=== PATIENT | male | born 1945 | race Caucasian/White ===

== ENCOUNTER 2022-03-28 14:24 | Inpatient (IN) | payer OTHER, SELFPAY ==
[2022-03-28] VITALS (9 sets, daily range): BP systolic 142–187; BP diastolic 74–96; PULSE 92–101; RESP 17–28; TEMP 36.6–36.8; O2SAT 93–96; BMI 33.3
--- NOTE | 2022-03-28 14:40 | XR_ITS ---
WS: [id number] XR chest 1V portable [id number] REASON FOR EXAM: dyspnea FINDINGS: No previous examination for comparison. Cardiac device overlying the left chest with multiple leads to the left subclavian vein to the right atrium and right ventricular apex. There is a small caliber lead which overlies a more superior aspec t of the cardiac silhouette. A lateral view would be required to determine location. The heart is enlarged. Calcified granulomatous disease bilaterally. Significant elevation of the left hemidiaphragm. No acute pulmonary parenchymal or pleural abnormality is identified. XR/XR chest 1V portable [id number] IMPRESSION: No acute chest abnormality identified.
--- NOTE | 2022-03-28 14:40 | ECG_ITS ---
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 Measurements Intervals [place] Rate: 150 P: IN: QRS: 73 QRSD: 155 T: 103 QT: 322 QTc: 509 Interpretive Statements ELECTRONIC VENTRICULAR PACEMAKER INTRAVENTRICULAR CONDUCTION DELAY [130+ ms QRS DURATION] No previous ECG available for comparison Electronically Signed On 03-28-2022 17:34:44 CDT by Binu Bolanos M.D. [email or web address] [email or web address]/[id number]
--- NOTE | 2022-03-28 14:41 | ED_ITS ---
[facility] - General Adult General: Chief complaint: Shortness of Breath/Dyspnea Stated complaint: SOB/ EDEMA/ WHEEZING Time Seen by Provider: 03/28/22 14:40 History of Present Illness: Patient is a 76-year-old male with history gout, hypertension, COPD, CHF presenting to the emergency room with concerns for respiratory distress for the last 2 days. Patient tells me that he was recently admitted to [facility] for concerns of CHF exacerbation. Since discharge from the hospital 5 days ago, patient reports significant shortness of breath. Patient is now requiring 3 L of oxygen per his . Patient tells me that he has a hard time taking his Lasix because of gout flare. Whenever he takes more Lasix, he usually experience severe gout attacks. Patient tells me he takes 20 mg of lasix. Patient reports history of COPD. Patient denies any cough, runny nose, sore throat, abdominal pain, diarrhea/melena/hematochezia. No complaints. Onset:2 days ago Duration:2 days Location:home Severity:moderate Associated symptoms: Reports dyspnea; Deny chest pain, nausea, rash, palpitations or vomiting Review of Systems Const: Denies: fever(s) or chills Eyes: Denies: change in vision ENMT: Denies: mouth pain Card: Denies: chest pain or palpitations Resp: Reports: dyspnea; Denies: non-productive cough GI: Denies: abdominal pain, nausea, vomiting or diarrhea : Denies: dysuria Musc: Denies: extremity pain Skin/Breast: Denies: rash or new lesions Neuro: Denies: weakness in extremities Psych: Reports: other (Normal mood) Yogesh/Lymph: Denies: easy bruising [facility] ED PFSH: Medical History CHF (congestive heart failure) COPD (chronic obstructive pulmonary disease) Diabetes Gout Hypertension Social History Smoking and tobacco status: never smoked Alcohol intake: never Substance/Drug Use: never Physical Exam Const: COMMON NORMALS: alert HENMT: COMMON NORMALS: atraumatic HEAD & SCALP: atraumatic MOUTH: moist mucous membranes not abnormal Eye: COMMON NORMALS: EOMs intact bilaterally and conjunctivae normal CONJUNCTIVA: Yes conjunctivae normal Neck/C-Spine: COMMON NORMALS: full ROM and supple Resp: OTHER: + Bilateral expiratory wheezes, coarse breath sounds, mild increased work of breathing b/l Cardio: COMMON NORMALS: regular rate RATE: regular rate GI: COMMON NORMALS: Soft to palpation and non-tender PALPATION: Yes Soft to palpation OTHER: No focal TTP. NO guarding rebound, guarding, rigidity. No CVA tenderness to percussion. Neg Good/Neg McBurney's point tenderness, no suprabupic tenderness to palpation. Extremity: COMMON NORMALS: full ROM OTHER: 2+ edema b/l pedal Neuro: SENSORIUM/ORIENTATION: Yes alert MOTOR EXAM: No Abnormal motor strength present and Other motor observations present (no focal motor deficits) Psych: COMMON NORMALS: speech normal SPEECH: Yes normal speech MOOD & AFFECT: Yes euthymic mood Course Vital Signs: Vital signs: Vital Signs Temperature 98.0 F 03/28/22 14:39 Pulse Rate 99 03/28/22 16:26 Respiratory Rate 17 03/28/22 16:26 Blood Pressure 187/96 03/28/22 16:26 Pulse Oximetry 94 03/28/22 16:26 Oxygen Delivery Me thod 03/28/22 16:26 Oxygen Flow Rate 2 03/28/22 16:26 [facility] - General Adult Medical Decision Making Patient is a 76-year-old male with history gout, hypertension, COPD, CHF presenting to the emergency room with concerns for respiratory distress for the last 2 days. On physical exam, patient was noted to be on 3 L oxygen satting at 94 to 95%. Patient do have coarse breath sounds with occasional wheezes. Patient is noted to have mild increased work of breathing, 1+ lower extremity edema b/l. Patient received DuoNeb, Solu-Medrol and 1 mg of bumetanide. Patient CT is negative for any signs of PE. Ongoing dyspnea, patient admitted hospital for further observation. Disposition: ICU Lab Data : 03/28/22 15:10 03/28/22 15:10 Radiology Impressions Chest X-Ray 03/28/22 14:40 IMPRESSION: No acute chest abnormality identified. Chest CTA 03/28/22 17:12 IMPRESSION: 1. Negative for pulmonary embolus. 2. Scattered right lung tree-in-bud reticulonodular densities with similar findings in the left lower lobe may reflect an atypical mycobacterial infection. 3. Several focal nodular right-sided areas of irregular airspace opacification, measuring up to 9.6 mm in the right lower lobe, series 8, image 36 and 5.7 mm in the right middle lobe, series 8, image 34, consider short-term 1 month follow-up exam to assess for resolution and exclude an infectious process. 4. Prominent mediastinal lymph nodes measuring up to nearly 15 mm, nonspecific. 5. Coronary artery atherosclerotic calcifications. Laboratory Results WBC 12.9 10^3/uL (4.0-10.0) H 03/28/22 15:10 RBC 4.37 10^6/uL (4.1-5.3) 03/28/22 15:10 Hgb 14.6 g/dL (11.7-16.6) 03/28/22 15:10 Hct 43.7 % (42.0-52.0) 03/28/22 15:10 MCV 100.0 fl (80-94) H 03/28/22 15:10 MCH 33.4 pg (28.0-34.0) 03/28/22 15:10 MCHC 33.4 g/dL (30.0-36.0) 03/28/22 15:10 RDW 16.7 % (12.1-15.1) H 03/28/22 15:10 Plt Count 264 10^3/cmm (130-400) 03/28/22 15:10 MPV 10.1 fL (7.4-10.4) 03/28/22 15:10 Neut % (Auto) 77.5 % 03/28/22 15:10 Lymph % (Auto) 7.5 % 03/28/22 15:10 [place] % (Auto) 6.4 % 03/28/22 15:10 Eos % (Auto) 7.0 % 03/28/22 15:10 Baso % (Auto) 0.9 % 03/28/22 15:10 Neut # (Auto) 9.99 10^3/uL (1.8-7.7) H 03/28/22 15:10 Lymph # (Auto) 1.0 10^3/uL (0.8-4.8) 03/28/22 15:10 [place] # (Auto) 0.8 10^3/uL (0.2-0.9) 03/28/22 15:10 Eos # (Auto) 0.9 10^3/uL (0.0-0.8) H 03/28/22 15:10 Baso # (Auto) 0.1 10^3/uL (0.0-0.1) 03/28/22 15:10 Nucleated RBC % (auto) 0 % 03/28/22 15:10 Nucleated RBCs # 0.0 /100WBC 03/28/22 15:10 D-Dimer 1.60 ug/mIFEU (0-0.59) H 03/28/22 15:10 Sodium 144 mmol/L (136-145) 03/28/22 15:10 Potassium 5.0 mmol/L (3.5-5.1) 03/28/22 15:10 Chloride 104 mmol/L (98-107) 03/28/22 15:10 Carbon Dioxide 32 mmol/L (22-29) H 03/28/22 15:10 Anion Gap 13.0 (5-19) 03/28/22 15:10 BUN 33 mg/dL (8-23) H 03/28/22 15:10 Creatinine 1.1 mg/dL (0.7-1.2) 03/28/22 15:10 GFR Calculation Not Reportable 03/28/22 15:10 Glucose 133 mg/dL (65-115) H 03/28/22 15:10 Calculated Osmolality 307 mOsm/kg (285-295) H 03/28/22 15:10 Calcium 9.3 mg/dL (8.5-10.5) 03/28/22 15:10 Troponin T Baseline 21 ng/L (0-15) H 03/28/22 15:10 Troponin T 120 Minute 18.24 ng/L (0-15) H 03/28/22 16:28 Delta Troponin T -2.76 ABS# (0-10) L 03/28/22 16:28 NT-Pro-B Natriuret Pep 347 pg/mL (0-450) 03/28/22 15:10 Vitamin B12 637 pg/mL (232-1245) 03/28/22 18:26 TSH 0.81 uIU/mL (0.27-4.20) 03/28/22 18:26 Imaging Data Other Imaging: Radiologist's impression: [employer] [address] [address] Scan Report Signed Patient: Jeramie Hensley Unit #: [id number] : 1945 Age/Sex: 76 / M ADM Date: 03/28/22 Loc: ICU Room/Bed: [place] [address]: Jeremiah Morales MD Ordering Provider/Ordering MD: Jeanne Lopez MD Date of Service: 03/28/22 Procedure(s): CT angio chest PE protcl [id number] Accession Number(s): [id number] Report Number: [id number] PROCEDURE INFORMATION: Exam: CTA Chest With Contrast Exam date and time: 03/28/2022 6:10 PM Age: 76 years old Clinical indication: Shortness of breath and wheezing; Prior surgery; Additional info: Eval for pe TECHNIQUE: Imaging protocol: Computed tomographic angiography of the chest with contrast. 3D rendering (Not supervised by radiologist): MIP and/or 3D reconstructed images were created by the technologist. Radiation optimization: All CT scans at this facility use at least one of these dose optimization techniques: automated exposure control; mA and/or kV adjustment per patient size (includes targeted exams where dose is matched to clinical indication); or iterative reconstruction. Contrast material: OMNIPAQUE 350; Contrast volume: 95 ml; Contrast route: INTRAVENOUS (IV);? COMPARISON: CR XR chest 1V portable [id number] 03/28/2022 2:57 PM RADIATION DOSE METRICS: Total DLP (mGy-cm): 564.71 FINDINGS: Pulmonary arteries: Normal. No pulmonary emboli. Aorta: Unremarkable. No aortic aneurysm. No aortic dissection. Lungs: Scattered right lung tree-in-bud reticulonodular densities with similar findings in the left lower lobe may reflect an atypical mycobacterial infection. Several focal nodular right-sided areas of irregular airspace opacification, measuring up to 9.6 mm in the right lower lobe, series 8, image 36 and 5.7 mm in the right middle lobe, series 8, image 34, consider short-term 1 month follow-up exam to assess for resolution and exclude an infectious process. Pleural spaces: Unremarkable. No pneumothorax. No pleural effusion. Heart: Coronary artery atherosclerotic calcifications. Lymph nodes: Prominent mediastinal lymph nodes measuring up to nearly 15 mm, nonspecific. Bones/joints: Unremarkable. No acute fracture. Soft tissues: Unremarkable. CT/CT angio chest PE protcl [id number] IMPRESSION: 1. Negative for pulmonary embolus. 2. Scattered right lung tree-in-bud reticulonodular densities with similar findings in the left lower lobe may reflect an atypical mycobacterial infection. 3. Several focal nodular right-sided areas of irregular airspace opacification, measuring up to 9.6 mm in the right lower lobe, series 8, image 36 and 5.7 mm in the right middle lobe, series 8, image 34, consider short-term 1 month follow-up exam to assess for resolution and exclude an infectious process. 4. Prominent mediastinal lymph nodes measuring up to nearly 15 mm, nonspecific. 5. Coronary artery atherosclerotic calcifications. ? Dictated By: Marcelo France MD Signed By: Marcelo France MD Signed Date/Time: 03/28/221909 DD/ [address] [address] XRay Report Signed Patient: Jeramie Hensley Unit #: [id number] : 1945 Age/Sex: 76 / M ADM Date: 03/28/22 Loc: ER Room/Bed: Attending Dr: Ordering Provider/Ordering MD: Jeanne Lopez MD Date of Service: 03/28/22 Procedure(s): XR chest 1V portable [id number] Accession Number(s): [id number] Report Number: [id number] WS: [id number] XR chest 1V portable [id number] REASON FOR EXAM: dyspnea FINDINGS: No previous examination for comparison. Cardiac device overlying the left chest with multiple leads to the left subclavian vein to the right atrium and right ventricular apex. There is a small caliber lead which overlies a more superior aspect of the cardiac silhouette. A lateral view would be required to determine location. The heart is enlarged. Calcified granulomatous disease bilaterally. Significant elevation of the left hemidiaphragm. No acute pulmonary parenchymal or pleural abnormality is identified. XR/XR chest 1V portable [id number] IMPRESSION: No acute chest abnormality identified. ? ? Dictated By: Tal Fung Jr, MD Signed By: Tal Fung Jr, MD Signed Date/Time: 03/28/22 1542 DD/ 1535 Discharge Plan Discharge Patient Disposition: Admitted As Inpatient Admit Provider: Jeremiah Morales Clinical Impression: CHF exacerbation, COPD exacerbation, Dyspnea Condition: Stable Coding Level of Care Code ED Division Controller for Chg Fwd Exam Comprehensive
[2022-03-28 15:22] LABS: Basophils # 0.1 10^3/uL (0.0-0.1); Basophils % 0.9 %; Eosinophils # 0.9 10^3/uL (0.0-0.8); Hematocrit 43.7 % (42.0-52.0); Hemoglobin 14.6 g/dL (11.7-16.6); Lymphocytes % 7.5 %; Mean Corpuscular HGB Conc 33.4 g/dL (30.0-36.0); Mean Corpuscular Hemoglobin 33.4 pg (28.0-34.0); Mean Platelet Volume 10.1 fL (7.4-10.4); Monocytes # 0.8 10^3/uL (0.2-0.9); Monocytes % 6.4 %; Neutrophils # 9.99 10^3/uL (1.8-7.7); Neutrophils % 77.5 %; Nucleated Red Blood Cells % 0 %; Platelet Count 264 10^3/cmm (130-400); Red Blood Count 4.37 10^6/uL (4.1-5.3); Red Cell Distribution Width 16.7 % (12.1-15.1); White Blood Count 12.9 10^3/uL (4.0-10.0)
[2022-03-28 15:40] LABS: Troponin(5th) Baseline 21 ng/L (0-15)
[2022-03-28 15:47] LABS: Blood Urea Nitrogen 33 mg/dL (8-23); Calcium 9.3 mg/dL (8.5-10.5); Carbon Dioxide 32 mmol/L (22-29); Chloride 104 mmol/L (98-107); Glucose 133 mg/dL (65-115); Osmolality Calculated 307 mOsm/kg (285-295); Sodium 144 mmol/L (136-145)
[2022-03-28] MEDS: ipratropium-albuterol 3 mL Neb INHALATION ×4 (15:56→20:30)
[2022-03-28 16:22] LABS: NT Pro B Type Natriuretic Pept 347 pg/mL (0-450)
[2022-03-28] MEDS: bumetanide 0.25 mg/mL SDV 4 mL 1 MG IVP (16:22)
--- NOTE | 2022-03-28 16:40 | ECG_ITS ---
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 Measurements Intervals [place] Rate: 98 P: 77 MD: 160 QRS: 259 QRSD: 156 T: 72 QT: 381 QTc: 488 Interpretive Statements ELECTRONIC VENTRICULAR PACEMAKER ABNORMAL RHYTHM ECG Compared to ECG 03/28/2022 15:37:49 Intraventricular conduction delay no longer present Electronically Signed On 03-28-2022 17:41:37 CDT by Binu Bolanos M.D. [email or web address]/store/OM/[id number]/[id number]
[2022-03-28 17:01] LABS: Troponin 5 2HR 18.24 ng/L (0-15)
[2022-03-28 17:02] LABS: Troponin 5 2HR Delta -2.76 ABS# (0-10)
--- NOTE | 2022-03-28 17:12 | CTR_ITS ---
PROCEDURE INFORMATION: Exam: CTA Chest With Contrast Exam date and time: 03/28/2022 6:10 PM Age: 76 years old Clinical indication: Shortness of breath and wheezing; Prior surgery; Additional info: Eval for pe TECHNIQUE: Imaging protocol: Computed tomographic angiography of the chest with contrast. 3D rendering (Not supervised by radiologist): MIP and/or 3D reconstructed images were created by the technologist. Radiation optimization: All CT scans at this facility use at least one of these dose optimization techniques: automated exposure control; mA and/or kV adjustment per patient size (includes targeted exams where dose is matched to clinical indication); or iterative reconstruction. Contrast material: OMNIPAQUE 350; Contrast volume: 95 ml; Contrast route: INTRAVENOUS (IV); COMPARISON: CR XR chest 1V portable [id number] 03/28/2022 2:57 PM RADIATION DOSE METRICS: Total DLP (mGy-cm): 564.71 FINDINGS: Pulmonary arteries: Normal. No pulmonary emboli. Aorta: Unremarkable. No aortic aneurysm. No aortic dissection. Lungs: Scattered right lung tree-in-bud reticulonodular densities with similar findings in the left lower lobe may reflect an atypical mycobacterial infection. Several focal nodular right-sided areas of irregular airspace opacification, measuring up to 9.6 mm in the right lower lobe, series 8, image 36 and 5.7 mm in the right middle lobe, series 8, image 34, consider short-term 1 month follow-up exam to assess for resolution and exclude an infectious process. Pleural spaces: Unremarkable. No pneumothorax. No pleural effusion. Heart: Coronary artery atherosclerotic calcifications. Lymph nodes: Prominent mediastinal lymph nodes measuring up to nearly 15 mm, nonspecific. Bones/joints: Unremarkable. No acute fracture. Soft tissues: Unremarkable. CT/CT angio chest PE protcl [id number] IMPRESSION: 1. Negative for pulmonary embolus. 2. Scattered right lung tree-in-bud reticulonodular densities with similar findings in the left lower lobe may reflect an atypical mycobacterial infection. 3. Several focal nodular right-sided areas of irregular airspace opacification, measuring up to 9.6 mm in the right lower lobe, series 8, image 36 and 5.7 mm in the right middle lobe, series 8, image 34, consider short-term 1 month follow-up exam to assess for resolution and exclude an infectious process. 4. Prominent mediastinal lymph nodes measuring up to nearly 15 mm, nonspecific. 5. Coronary artery atherosclerotic calcifications.
[2022-03-28] MEDS: iohexol 350 mg/mL 100 mL Btl IV (18:27)
--- NOTE | 2022-03-28 18:27 | P.HP_ITS ---
Providers/Chief Complaint Chief Complaint: SOB/ EDEMA/ WHEEZING History of Present Illness Jeramie Hensley is a 76 year old male who is a resident of [place], [facility] with past medical history of COPD, obstructive sleep apnea on CPAP, not home oxygen, congestive heart failure with ischemic cardiomyopathy and EF possibly of 20%, pacemaker implantation who was recently at [facility] for 2-1/2 days for shortness of breath. He was sent home on oral diuretics which patient has not been taking regularly because usually Lasix precipitates his gout presents to the ER today because of worsening shortness of breath and lower limb swelling over the last 3 days. Shortness of breath gets exacerbated on laying down flat and on talking not on walking. Currently he is sitting at the edge of his bed on 3 L, using accessory muscles saturating more than 96%. Shortness of breath not associated with fever, cough with more expectoration, hemoptysis, chest pain. Patient denies any possible sick contacts. States usually does not use any oxygen but for last 3 days has been using his 's oxygen up to 3 L. In the ER he was given nebulization treatment, 125 mg of IV Solu-Medrol and 1 mg of IV Bumex Review of Systems General: Reports: 10 or more systems reviewed and unremarkable except in HPI and below Const: Denies: fever(s), chills, body aches, change in appetite, change in weight, malaise, night sweats, diaphoresis, change in sleep pattern, daytime sleepiness or snoring Eyes: Denies: change in vision, blurry vision, photophobia, eye discomfort or eye discharge ENMT: Denies: throat pain, enlarged tonsils, hoarseness, mouth pain, oral sores, dry mouth, tinnitus, nasal congestion or post nasal drip Card: Denies: chest pain, palpitations, irregular heart rhythm, edema, swelling of feet/ankles, lightheadedness, syncope, pre-syncope, dyspnea on exertion, orthopnea, leg pain with exertion or acrocyanosis Resp: Denies: dyspnea, productive cough, non-productive cough, wheezing, stridor, pain on inspiration, change in phlegm color, hemoptysis or chest congestion GI: Denies: abdominal pain, nausea, vomiting, hematemesis, coffee ground emesis, dysphagia, heartburn, diarrhea, constipation, bloating, GI cramping, change in bowel habits, pain on defecation, hematochezia or melena : Denies: flank pain, difficulty urinating, dysuria, urinary frequency, urinary urgency, urinary hesitancy, urinary dribbling, difficulty starting urination, change in urine stream, nocturia or hematuria Musc: Denies: neck pain, back pain, extremity pain, joint pain, joint swelling, joint redness, joint stiffness or limited range of motion Neuro: Denies: headache(s), numbness in extremities, weakness in extremities, sensory changes, lack of coordination, difficulty walking, frequent falls, dizziness, vertigo, confusion, Slurred speech present, difficulty communicating thoughts or seizure-like activity Psych: Denies: anxiety, depression, mood swings, panic attacks, hopelessness or irritability Endo: Denies: polyuria, polydipsia, tired all the time, cold intolerance, excessive sweating, flushing or heat intolerance Yogesh/Lymph: Denies: easy bruising or easy bleeding All/Imm: Denies: tongue swelling, facial swelling or acute wheezing Medications/Allergies Home Medications Medication Instructions Recorded Confirmed Last Taken Type allopurinol 300 mg tablet 300 mg PO DAILY 03/28/22 03/28/22 03/28/22 History aspirin 81 mg tablet,delayed 81 mg PO QPM 03/28/22 03/28/22 03/27/22 History release atorvastatin 20 mg tablet 20 mg PO QPM 03/28/22 03/28/22 03/27/22 History carvedilol 12.5 mg tablet 18.75 mg PO BID 03/28/22 03/28/22 03/28/22 History furosemide 20 mg tablet 20 mg PO DAILY 03/28/22 03/28/22 03/28/22 History lisinopril 30 mg tablet 30 mg PO DAILY 03/28/22 03/28/22 03/28/22 History tamsulosin 0.4 mg capsule 0.4 mg PO BID 03/28/22 03/28/22 03/28/22 History Allergies Allergy/AdvReac Type Severity Reaction Status Date / Time No Known Allergies Allergy Verified 03/28/22 16:08 PFSH Acute PFSH: Medical History (Updated 03/28/22 @ 22:45 by Jeremiah Morales MD) CHF (congestive heart failure) COPD (chronic obstructive pulmonary disease) Diabetes Gout Hypertension NIKI on CPAP Postsurgical cardiac pacemaker in situ Social History Smoking and tobacco status: never smoked Alcohol intake: never Substance/Drug Use: never Vitals/I&O/Wt Last Vital Signs Temp 98.0 F 03/28/22 14:39 Pulse 99 03/28/22 16:26 Resp 17 03/28/22 16:26 BP 187/96 03/28/22 16:26 Pulse Ox 94 03/28/22 16:26 O2 Del Method 03/28/22 16:26 O2 Flow Rate 2 03/28/22 16:26 Weight last 48 hrs Weight 102.512 kg Physical Exam Narrative: General: In distress ago shortness of breath, using accessory muscles AO x3, NC oxygen supplementation HEENT: PERRLA, pupils bilaterally equal and reactive Chest:Bronchial breath sounds b/l ,decreased air entry, equal good air entry bilaterally, no more fine basal crackles CVS: S1-S2 regular, no murmurs, no tachycardia, no gallops, no rubs Abdomen: Soft, nontender, no organomegaly, bowel sounds present, morbidly obese Neuro: No focal deficits, no facial deformity, AO x3, power 5/5 in all limbs Extremities: Bilateral lower limb edema 2+ Data : 03/28/22 15:10 03/28/22 15:10 A&P Assessment and plan (1) Respiratory failure with hypoxia: (2) CHF exacerbation: (3) Ischemic cardiomyopathy: (4) NIKI on CPAP: (5) COPD exacerbation: (6) Postsurgical cardiac pacemaker in situ: Plan Hypoxia most likely secondary to CHF exacerbation in setting of NIKI on CPAP and COPD. Check D-dimer. If elevated will do CTA versus CT chest without contrast. Check COVID-19 PCR given recent hospitalization. Check sputum culture. For now start patient on oral azithromycin. We will hold off on starting IV antibiotics. Pneumonia less likely. For now start patient on IV Lasix 40 mg daily. Viera catheterization. Strict input output charting. Daily weights. Fluid restriction up to 1800 cc. Oxygen supplementation keeping saturation over 88%. Target 1 L negative the next 24 hours. Check echocardiogram to rule out pericardial effusion, evaluate for EF and regional wall motion abnormality. DuoNeb every 6 hour, budesonide twice daily. Continue home CPAP. Hypertension: Goal blood pressure less than 140/90 mmHg. For now continue with home dose of carvedilol, lisinopril. Will uptitrate medication as per goal blood pressures. 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 Analgesia: Tylenol as needed, morphine 1 mg every 4 hours as needed. Glycemic control: Not needed. Check A1c. Nutrition: Cardiac diet. Fluid restriction up to 1800 cc. CODE STATUS: Discussed in detail with the patient. DNR/DNI. PUD prophylaxis: Famotidine. DVT prophylaxis: Heparin 5000 every 12 hourly. Discharge planning: Home with caregiver once medically cleared. Admit to ICU for next 24 hours. This documentation was created by [employer] tattooer software. Every effort was made to ensure accuracy of tattooer. Any obvious errors or omissions should be clarified with the author of the document. Attestations Medical Necessity Statement*: Admission for more than 2 midnights for management of hypoxic respiratory failure secondary to CHF exacerbation Time Spent in Patient Care: Greater than 35 minutes Coding Level of Care Code Acute Foreign Language Professor for Loyda Fwd Diagnoses Respiratory failure with hypoxia J96.91 CHF exacerbation I50.9 Ischemic cardiomyopathy I25.5 NIKI on CPAP G47.33; Z99.89 COPD exacerbation J44.1 Postsurgical cardiac pacemaker in situ Z95.0
--- NOTE | 2022-03-28 18:39 | USCV_ITS ---
Jeramie Hensley Age: 76 Gender: M : 1945 Exam Date: 03/28/2022 19:00 Ordering Phys: Jeanne Lopez MD Technologist: HAVEN [place] [facility] [place]: CHF, SOB, History of pacemaker / defibrillator since 2011 BP: 187 / 96 HR: 75 Rhythm: Atrial fibrillation Technical Quality: Suboptimal MEASUREMENTS (Male / Female) Normal Values 2D ECHO LV Diastolic Diameter PLAX 4.3 cm 4.2 - 5.9 / 3.9 - 5.3 cm LV Systolic Diameter PLAX 2.8 cm IVS Diastolic Thickness 1.8 cm 0.6 - 1.0 / 0.6 - 0.9 cm IVS Systolic Thickness 2.3 cm LVPW Diastolic Thickness 1.9 cm 0.6 - 1.0 / 0.6 - 0.9 cm LVPW Systolic Thickness 1.5 cm LVOT Diameter 2.5 cm LV Ejection Fraction 2D Teich 64.2 % LV Ejection Fraction MOD 2C 59.6 % LV Ejection Fraction 2C AL 59.3 % LA Diameter 3.4 cm LA Width 3.8 cm LA Height 5.3 cm RA Width 3.7 cm RA Height 5.1 cm Aorta at Sinotubular Diameter 3.4 cm IVC Diameter 2.0 cm M-MODE Aortic Annulus Diameter 3.3 cm LA Ao Ratio MM 1.1 MV E Point Septal Separation 0.6 cm DOPPLER AV Peak Velocity 132.0 cm/s LVOT Peak Velocity 88.0 cm/s AV Area Cont Eq vti 4.3 cm squared AV Area Cont Eq pk 3.4 cm squared MV Area PHT 3.5 cm squared MV E' Velocity 64.0 cm/s Mitral E to MV E' Ratio 11.4 Mitral E to LV E' Lateral Ratio 11.3 Mitral E to LV E' Septal Ratio 11.6 TR Peak Velocity 248.0 cm/s TR Peak Gradient 24.6 mmHg TV Peak E Velocity 52.0 cm/s Right Atrial Pressure 5.0 mmHg Pulmonary Artery Systolic Pressu 29.6 mmHg PV Peak Velocity 121.0 cm/s RV Acceleration Time 0.2 s RV Ejection Time 0.3 s RV AcT/ET 0.5 FINDINGS Left Ventricle Normal left ventricular size and mildly decreased systolic function. Left ventricular ejection fraction is estimated at 50- 55 %. Although no diagnostic regional wall motion normality could be artifact, this possibility cannot be completely excluded based on the study. Abnormal septal motion consistent with pacemaker. Right Ventricle Normal right ventricular size and systolic function. RVSP could not be calculated due to incomplete tricuspid regurgitation velocity profile. Pacemaker wire visualized in the right ventricle. Right Atrium Normal right atrial size. Left Atrium Normal left atrial size. Mitral Valve Structurally normal mitral valve. No mitral valve stenosis. No significant mitral valve regurgitation. Aortic Valve Aortic valve not well visualized. No aortic valve stenosis. No aortic valve regurgitation. Tricuspid Valve Structurally normal tricuspid valve. Trace tricuspid valve regurgitation. Pulmonic Valve Structurally normal pulmonic valve. No pulmonary valve stenosis. Trace pulmonary valve regurgitation. Pericardium No pericardial effusion. Aorta Normal size aortic root and proximal ascending aorta. IVC Normal IVC dimension with >50% respiratory change of the inferior vena cava. CONCLUSIONS 1. This is a technically difficult study with off axis images. 2. Normal left ventricular size and mildly decreased systolic function. Left ventricular ejection fraction is estimated at 50- 55 %. Although no diagnostic regional wall motion abnormality could be identified, this possibility cannot be completely excluded based on the study. 2. Normal right ventricular size and systolic function. 3. No significant valvular abnormality based on the study. 4. No prior similar studies to compare. 5. Repeat study with echo contrast is recommended. Leora Martin MD (Electronically Signed) Final Date: 29 March 2022 13:52 Amended: 29 March 2022 16:32 C
[2022-03-28 19:12] LABS: Thyroid Stimulating Hormone 0.81 uIU/mL (0.27-4.20); Vitamin B12 637 pg/mL (232-1245)
[2022-03-28 19:21] LABS: Add Urine Microscopic? NO; Charge for UA Resulting for Rev
[2022-03-28 19:27] LABS: Bilirubin Urine Negative (Negative); Blood Urine Negative (Negative); Glucose Urine UA Negative (Normal); Ketones Urine Negative (Negative); Leukocyte Esterase Urine Negative (Negative); Nitrate Urine Negative; Protein Urine Negative (Negative); Urine Appearance Clear (CLEAR); Urine Color Yellow (Yellow); Urobilinogen Urine 0.2 mg/dL (Negative); pH Urine 5.5 (5-7)
[2022-03-28 19:28] LABS: Potassium, Radom Urine 27 mmol/L; Urine Creatinine 51 mg/dL (39-259); Urine Random Chloride 139 mmol/L; Urine Random Sodium 127 mmol/L
[2022-03-28 19:47] LABS: Procalcitonin 0.04 ng/mL (0-0.5)
[2022-03-28 20:01] LABS: Folate Level 15.7 ng/mL (4.5-32.2)
[2022-03-28 20:14] LABS: Iron 75 ug/dL (59-158)
--- NOTE | 2022-03-28 20:40 | ECG_ITS ---
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 Measurements Intervals [place] Rate: 103 P: 72 UT: 171 QRS: 255 QRSD: 148 T: 64 QT: 367 QTc: 482 Interpretive Statements ELECTRONIC VENTRICULAR PACEMAKER ABNORMAL RHYTHM ECG Compared to ECG 03/28/2022 16:34:35 No significant changes Electronically Signed On 03-28-2022 22:44:06 CDT by Binu Bolanos M.D. [id number]
[2022-03-28 20:47] LABS: Adenovirus Not Detected (NOT DETECT); Chlamydia Pneumoniae Not Detected (NOT DETECT); Coronavirus 229E,HKU1,NL63,OC4 Not Detected (NOT DETECT); Human Metapneumovirus Not Detected (NOT DETECT); Human Rhinovirus/Enterovirus Not Detected (NOT DETECT); Influenza A Not Detected (NOT DETECT); Influenza A H1 Not Detected (NOT DETECT); Influenza A H1-2009 Not Detected (NOT DETECT); Influenza A H3 Not Detected (NOT DETECT); Influenza B Not Detected (NOT DETECT); Mycoplasma Pneumoniae Not Detected (NOT DETECT); Parainfluenza Virus Type 1 Not Detected (NOT DETECT); Parainfluenza Virus Type 2 Not Detected (NOT DETECT); Parainfluenza Virus Type 3 Not Detected (NOT DETECT); Parainfluenza Virus Type 4 Not Detected (NOT DETECT); Respiratory Syncytial Virus A Not Detected (NOT DETECT); Respiratory Syncytial Virus B Not Detected (NOT DETECT); SARS-COV-2 Not Detected (NOT DETECT)
--- NOTE | 2022-03-28 20:55 | PC.NURSE ---
Patient's Maritza Hensley is staying at the [facility] room 117 's cell is [phone]
[2022-03-28 21:09] LABS: Troponin 5 6HR 22.82 ng/L (0-15)
[2022-03-28 21:11] LABS: Troponin 5 6HR Delta 1.82 ng/L (0-12)
[2022-03-28] MEDS: famotidine 20 mg/2 mL INJ IVP (21:39)
[2022-03-28] MEDS: azithromycin 250 mg Tablet 500 MG PO (22:36)
[2022-03-28] MEDS: heparin 5,000 unit/mL INJ 1 mL 5000 UNIT SUBCUT (22:37)
[2022-03-29] VITALS (32 sets, daily range): BP systolic 95–148; BP diastolic 51–94; PULSE 62–117; RESP 14–24; TEMP -13.8–36.7; O2SAT 86–96
[2022-03-29 00:49] LABS: Percent Saturation 18.2 % (20-50); Unsaturated Iron Binding 336 ug/dL (112-347)
[2022-03-29 00:50] LABS: Total Iron Binding Capacity 411 mcg/dl
--- NOTE | 2022-03-29 03:44 | PC.NURSE ---
patient refused fung catheter, patient educated about using urinal for accurate I&O
[2022-03-29 04:11] LABS: Basophils % 0.3 %; Eosinophils % 0.1 %; Hematocrit 44.1 % (42.0-52.0); Hemoglobin 14.5 g/dL (11.7-16.6); Lymphocytes # 0.5 10^3/uL (0.8-4.8); Mean Corpuscular HGB Conc 32.9 g/dL (30.0-36.0); Mean Corpuscular Hemoglobin 33.3 pg (28.0-34.0); Mean Corpuscular Volume 101.1 fl (80-94); Mean Platelet Volume 10.3 fL (7.4-10.4); Monocytes # 0.1 10^3/uL (0.2-0.9); Monocytes % 0.6 %; Neutrophils # 11.13 10^3/uL (1.8-7.7); Neutrophils % 94.3 %; Nucleated Red Blood Cells % 0 %; Platelet Count 305 10^3/cmm (130-400); Red Blood Count 4.36 10^6/uL (4.1-5.3); Red Cell Distribution Width 16.9 % (12.1-15.1); White Blood Count 11.8 10^3/uL (4.0-10.0)
[2022-03-29 04:38] LABS: Alanine Aminotransferase 10 U/L (0-41); Alkaline Phosphatase 95 U/L (40-130); Anion Gap 14.1 (5-19); Aspartate Amino Transferase 14 U/L (0-40); Blood Urea Nitrogen 33 mg/dL (8-23); Calcium 9.2 mg/dL (8.5-10.5); Carbon Dioxide 32 mmol/L (22-29); Chloride 100 mmol/L (98-107); Chol HDL Ratio 4.57 mg/dL (1.0-5.00); Cholesterol 169 mg/dL (0-200); Globulin 2.6 g/dL (1.3-4.6); Glucose 167 mg/dL (65-115); HDL Cholesterol 37 mg/dL (60-100); LDL Cholesterol Calculated 118 mg/dL (50-129); Osmolality Calculated 303 mOsm/kg (285-295); Phosphorus 4.9 mg/dL (2.5-4.5); Potassium 5.1 mmol/L (3.5-5.1); Sodium 141 mmol/L (136-145); Total Protein 6.6 g/dL (6.6-8.7); Triglycerides 70 mg/dL (0-150); VLDL Cholestrol Calculation 14 mg/dL (0-30)
[2022-03-29 06:12] LABS: Estmated Average Glucose 68
[2022-03-29] MEDS: famotidine 20 mg/2 mL INJ IVP ×2 (06:17→18:27)
[2022-03-29] MEDS: FUROsemide 10 mg/mL SDV 4mL 40 MG IVP ×2 (06:17→09:35)
[2022-03-29] MEDS: ipratropium-albuterol 3 mL Neb INHALATION ×3 (08:06→20:20)
[2022-03-29] MEDS: budesonide 0.5 mg/2 mL Neb INHALATION ×2 (08:06→20:20)
[2022-03-29 08:57] LABS: Amphetamines Screen Urine Negative (Negative); Barbiturates Screen Urine Negative (Negative); Benzodiazepines Screen Urine Negative (Negative); Cocaine Screen Urine Negative (Negative); Opiate Screen Urine Negative (Negative); PCP Screen Urine Negative (Negative); THC Screen Urine Negative (Negative)
[2022-03-29] MEDS: ferrous gluconate 324 mg Tablet PO ×2 (09:35→16:53)
[2022-03-29] MEDS: allopurinol 300 mg Tablet PO (09:35)
[2022-03-29] MEDS: carvedilol 12.5 mg Tablet 18.75 MG PO (09:35)
[2022-03-29] MEDS: tamsulosin 0.4 mg Capsule PO ×2 (09:35→16:53)
[2022-03-29] MEDS: heparin 5,000 unit/mL INJ 1 mL 5000 UNIT SUBCUT ×2 (09:36→20:02)
--- NOTE | 2022-03-29 10:38 | PC.CHAP ---
Pastoral Care Encounter/Spiritual Assessment Type of Contact [] Declined pressurised container filler visit [] Patient/Family/Request visit [] Outpatient visit [] Follow-up visit [] Physician referral [] Code/Alert [x] Routine visit [] Staff referral [] Actively dying [] Patient sleeping [x] Family support [] [] Out of room [] Palliative care [] [] Receiving care in room [] Pre-surgical visit [] Trauma [] Long length of stay [x] ICU visit [x] Other: spent time with PT and family... Relational/Emotional Strength [] Patient feels connected with others/family/visitors/staff [] Distress [] Loneliness/isolation [] Abandonment Spirituality of Patient [] Person of Letitia [] Attends Christian of their Letitia [] Believes in Prayer [] Reads Bible or Voodoo materials [] There are Spiritual issues to be addressed Forest Resource Specialist Interventions [x] Prayer [] Active listening [] Non-anxious presence [] Spiritual/emotional support [] Crisis/trauma care [] Spiritual counseling [] Bereavement support [] Provided bereavement packet [] Provided Bible/devotional materials [] Provided toy/stuffed animal, coloring book to patient or family member [] Provided Communion [] Anointing/[place] [] Salvation [x] Completed spiritual assessment [] Other: Impact on Illness or Injury [] Angry [] Fearful [] Anxious [] Often cries [] Exhaustion [] Unable to work [] Unable to attend restorationism [] Unable to walk/stand [] Unable to read [] Unable to drive [] Unable to eat/drink [] Unable to sleep [] Unable to be with family [] Patient intubated [] Other: Summary Time spent with patient
--- NOTE | 2022-03-29 14:50 | PM.PN ---
Subjective Subjective: No evidence overnight. Today morning on examination patient seen at bedside. On examination patient was off oxygen saturating between 87 to 89%. Getting tachypneic on talking. Patient does not want to have Viera catheter placed. He is getting out of breath, tachycardic and desaturating on getting up to pass urine in urinal. At first patient wanted to be discharged home and follow-up with his information technology professor as an outpatient because he is feeling better today but after further discussion with patient and patient's spouse at bedside he is agreeable to stay for further management. We had a long discussion regarding patient's illness. We discussed that patient is at high risk of readmissions because of significantly low EF, congestive heart failure along with COPD. Patient states usually he can only walk around 5 minutes before needing to rest for around 15 minutes to catch his breath. States this is his new lifestyle for last few months. States as an outpatient his doctors wanted him to take Spiriva and Entresto which he is not able to afford. Vitals/I&O/Wt Last Vital Signs Temp 97.8 F 03/29/22 11:56 Pulse 90 03/29/22 14:00 Resp 18 03/29/22 13:20 BP 95/69 03/29/22 14:00 Pulse Ox 91 03/29/22 14:00 O2 Del Method 03/29/22 14:00 O2 Flow Rate 2 03/29/22 14:00 03/28/22 03/29/22 03/29/22 22:59 06:59 14:59 Intake Total 500 / 500 720 / 720 Output Total 200 / 200 300 / 500 1350 / 1350 Balance 300 / 300 -300 / 0 -630 / -630 Weight last 48 hrs Weight 102.965 kg Weight 102.512 kg Physical Exam Narrative: General: In distress ago shortness of breath, using accessory muscles AO x3, NC oxygen supplementation HEENT: PERRLA, pupils bilaterally equal and reactive Chest:Bronchial breath sounds b/l ,decreased air entry, equal good air entry bilaterally, no more fine basal crackles CVS: S1-S2 regular, no murmurs, no tachycardia, no gallops, no rubs Abdomen: Soft, nontender, no organomegaly, bowel sounds present, morbidly obese Neuro: No focal deficits, no facial deformity, AO x3, power 5/5 in all limbs Extremities: Bilateral lower limb edema 2+ Data : 10/04/22 03:38 03/29/22 03:38 Micro: Microbiology 03/28/22 18:43 Legionella Urinary Antigen - Final Urine,Clean Catch A&P Assessment and plan (1) Respiratory failure with hypoxia: Qualifiers: Chronicity: acute on chronic Qualified Code(s): J96.21 - Acute and chronic respiratory failure with hypoxia (2) CHF exacerbation: Qualifiers: Heart failure type: diastolic Qualified Code(s): I50.33 - Acute on chronic diastolic (congestive) heart failure (3) NIKI on CPAP: (4) COPD exacerbation: (5) Postsurgical cardiac pacemaker in situ: (6) Ischemic cardiomyopathy: (7) ICD (implantable cardioverter-defibrillator) in place: Plan Hypoxic respiratory failure: Most likely secondary to COPD exacerbation in setting of CHF and obstructive sleep apnea. CTA done yesterday ruled out PE. A cardiogram done shows an EF of 65% without regional wall motion abnormality. COVID-19 PCR negative. Sputum culture sent results awaited. Low likelihood of pneumonia for now. Continue with azithromycin. Continue DuoNebs every 6 hour, budesonide twice daily. Home CPAP. Oxygen supplementation keeping saturation over 88%. Start on Solu-Medrol 40 mg every 6 hourly. For diastolic heart failure continue with IV Lasix 40 mg daily. Give 40 mg extra dose today. Strict input output charting, daily weights. Fluid restriction up to 2000 cc. Hypertension: Goal blood pressure less than 140/90 mmHg. Continue to hold off on lisinopril. Decrease dose of carvedilol to 12.5 mg twice daily. Will change medications as per blood pressures. Will try to get documents from patient's outpatient information technology professor versus [facility]. Gout: Patient worried about precipitation of gout with medications. States he has to take rescue steroids at least 2-3 times ER. As per patient mostly does not take any of his medications because of concerns for gout. Continue allopurinol. Start on colchicine 0.6 mg daily. Analgesia: Tylenol as needed, morphine 1 mg every 4 hours as needed. Glycemic control: Not needed. A1c 4. Nutrition: Cardiac diet. Fluid restriction up to 1800 cc. CODE STATUS: Discussed in detail with the patient. DNR/DNI. PUD prophylaxis: Famotidine. DVT prophylaxis: Heparin 5000 every 12 hourly. Discharge planning: Home with caregiver once medically cleared. Transfer to [facility] with telemetry. This documentation was created by [employer] metal work duct installer software. Every effort was made to ensure accuracy of metal work duct installer. Any obvious errors or omissions should be clarified with the author of the document. Attestations Medical Necessity Statement*: Requires further hospitalization for management of hypoxic respiratory failure secondary to COPD exacerbation in setting of diastolic heart failure obstructive sleep apnea. 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
[2022-03-29] MEDS: colchicine 0.6 mg Tablet PO (15:36)
[2022-03-29] MEDS: atorvastatin 40 mg Tablet 20 MG PO (16:53)
[2022-03-29] MEDS: aspirin 81 mg EC Tablet PO (16:53)
--- NOTE | 2022-03-29 18:31 | PC.NURSE ---
SHIFT SUMMARY: PT HAS HAD AN UNEVENTFUL SHIFT THUS FAR. PT HAS HAD A TOTAL OF 1350 IN URINE OUTPUT. PT HAS ONLY HAD A TOTAL OF 960 ML INTAKE. PT IS ALERT AND ORIENTATED X4. PT DOES NOT HAVE ANY COMPLAINTS RIGHT NOW NOR ANY REQUESTS. PT HAS NO COMPLAINTS OF PAIN. VITALS HAVE REMAINED WNL. PT IS ON 2L NASAL CANNULA. WILL CONTINUE TO MONITOR.
--- NOTE | 2022-03-29 19:10 | USCV_ITS ---
Jeramie Hensley Age: 76 Gender: M : 1945 Exam Date: 03/29/2022 19:36 Ordering Phys: Jeremiah Morales MD Technologist: HAVEN [place] [facility] [place] Indication: additional clips with Optison BP: 131 / 69 HR: 94 Rhythm: Sinus Technical Quality: Adequate with Optison MEASUREMENTS (Male / Female) Normal Values FINDINGS Left Ventricle Normal left ventricular size and systolic function, EF 65%. No gross wall motion normalities are noted. Echo contrast was used for the LV opacification and segmental wall motion analysis Right Ventricle Normal right ventricle could not visualized well. Possibly of normal size and ejection fraction Right Atrium Could not be visualized well. Possibly of normal size Left Atrium Possibly of normal size Mitral Valve No gross abnormalities noted Aortic Valve Could not be visualized well Tricuspid Valve Could not be visualized Pulmonic Valve Could not be visualized Pericardium No pericardial effusion. Aorta Could not be visualized well IVC Inferior vena cava not visualized. CONCLUSIONS No gross wall motion normalities are noted. No gross wall motion normalities are noted. Possibly normal RV size and ejection fraction. Both the atria appeared to be of normal size. No significant pericardial effusion Echo contrast, Optison was used for LV function analysis Dr Mook Mckeon MD [facility] (Electronically Signed) Final Date: 29 March 2022 20:17 S
[2022-03-29] MEDS: carvedilol 12.5 mg Tablet PO (20:02)
[2022-03-30] VITALS (16 sets, daily range): BP systolic 110–118; BP diastolic 56–79; PULSE 60–101; RESP 12–19; O2SAT 87–98
[2022-03-30] MEDS: dexmedeTOMIDine 0.9 % NaCL 400 MCG/100 ML PREMIX IV (02:45)
[2022-03-30] MEDS: haloperidol inj 5 mg/mL INJ 1 mL 2 MG IM (02:59)
--- NOTE | 2022-03-30 03:24 | PC.NURSE ---
Addendum entered by Ailyn Nguyen RN 03/30/22 03:51: Attempt x3 to contact . Addendum entered by Ailyn Nguyen RN 03/30/22 03:37: Patient stated several statements of paranoia/confusion. Patient stated I don't know what you guys think I know, but I don't know nothing and they're gonna find my body. and many other similar statements. Original Note: Around 0220, patient walked out of room and stated I want out of here, I can't sleep with all these horns honking. Patient put on his clothes. Patient was offered something to help him sleep and stated I don't want something to help me sleep, I want out of here. When asking patient where he is at, he stated the back of some home. Patient was alert and oriented x4 at beginning of shift, but is now confused. Patient still attempting to leave the hospital and was becoming aggressive. Security, warehouse engineer, and multiple ICU came to bedside. Patient was refusing to lay back down. Patient was placed back in bed. Dr. Gerber gave ordered for 2 mg Haldol, which was given at 0225. Order was then received for Precedex drip which was started at 0245. With Precedex drip running, patient is still awake and confused, but is no longer aggressive. Will monitor and titrate as needed.
--- NOTE | 2022-03-30 03:52 | PC.NURSE ---
Patient on two liters nasal cannula. Unable to wean patient to room air.
[2022-03-30] MEDS: perflutren protein-a microsphr 0.22 mg/mL SDV 3 mL IV (05:38)
--- NOTE | 2022-03-30 05:52 | PC.NURSE ---
Patient was on two liters nasal cannula. Patient now on one liter nasal cannula with oxygen saturation of 90 percent.
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
[2022-03-30] MEDS: haloperidol inj 5 mg/mL INJ 1 mL 1 MG IM (09:16)
--- NOTE | 2022-03-30 10:07 | PC.NURSE ---
This AM patient became agitated and was trying to climb out of bed to get his clothes. Patient stated he was going to put his clothes on because he was going home and was yelling at staff as we attempted to deescalate the situation. was informed and PRN medication was given.
--- NOTE | 2022-03-30 10:11 | PM.DCS ---
Discharge Providers Date of Admission: 03/28/22 18:39 Date of Discharge: March 30, 2022 Attending Provider at Admission: Jeremiah Morales MD Attending Provider at Discharge: Jeremiah Mroales MD Diagnoses at Discharge Discharge Diagnosis (1) Respiratory failure with hypoxia: Status: Acute Qualifiers: Chronicity: acute on chronic Qualified Code(s): J96.21 - Acute and chronic respiratory failure with hypoxia (2) CHF exacerbation: Status: Acute Qualifiers: Heart failure type: diastolic Qualified Code(s): I50.33 - Acute on chronic diastolic (congestive) heart failure (3) NIKI on CPAP: Status: Acute (4) COPD exacerbation: Status: Acute (5) Postsurgical cardiac pacemaker in situ: Status: Deleted (6) Ischemic cardiomyopathy: Status: Chronic Permanent problem details: Echocardiogram done on 03/28 shows an EF of 65%, no R WMA (7) ICD (implantable cardioverter-defibrillator) in place: Status: Acute Reason for Visit Reason for Visit: SOB/ EDEMA/ WHEEZING Hospital Course Hospital Course Jeramie Hensley is a 76 year old male who is a resident of [facility] with past medical history of COPD, obstructive sleep apnea on CPAP, not home oxygen, congestive heart failure with ischemic cardiomyopathy and EF possibly of 20%, pacemaker implantation who was recently at [facility] for 2-1/2 days for shortness of breath.? He was sent home on oral diuretics which patient has not been taking regularly because usually Lasix precipitates his gout presents to the ER today because of worsening shortness of breath and lower limb swelling over the last 3 days.? Shortness of breath gets exacerbated on laying down flat and on talking not on walking.? Currently he is sitting at the edge of his bed on 3 L, using accessory muscles saturating more than 96%.? Shortness of breath not associated with fever, cough with more expectoration, hemoptysis, chest pain.? Patient denies any possible sick contacts.? States usually does not use any oxygen but for last 3 days has been using his 's oxygen up to 3 L. Patient admitted to hospital further evaluation of hypoxic respiratory failure. No outpatient documentation was available. On admission CTA and echocardiogram was done to rule out pulmonary embolism, pericardial effusion and tamponade. Echocardiogram showed an EF of 60 to 65% without regional wall motion abnormality or valvular abnormalities. At first he was started on IV diuresis which improved his respiratory effort. He was started on nebulization treatment along with steroids which improved his breathing effort and has currently been saturating more than 92% on 2 to 3 L of oxygen supplementation without tachypnea. Patient's hospitalization was complicated by him developing agitation though he was AOx3. Multiple attempts were made after conversation with the patient to make him understand the etiology of his disease, need of treatment, continuous oxygen and nebulization treatment as an outpatient and continuous admission for now to help finish the treatment. Patient was not agreeable. Patient safe discharge were discussed in detail with him and his . He was eventually discharged hemodynamically stable condition at his baseline mentation. His medications including Coreg and lisinopril has been continued to the dosage has been changed. He is to take lisinopril 10 mg daily, Coreg 12.5 mg twice daily. He has been discharged on 3 L oxygen supplementation, nebulizer with DuoNeb and Pulmicort to be done daily for now. He is been discharged on Augmentin and Levaquin for next 7 days. He is advised to follow-up with pulmonology as an outpatient. He will be discharged on 20 mg of oral Lasix daily. During hospitalization at times patient was uncooperative. Physical Exam Narrative: General: In distress ago shortness of breath, using accessory muscles AO x3, NC oxygen supplementation HEENT: PERRLA, pupils bilaterally equal and reactive Chest:Bronchial breath sounds b/l ,decreased air entry, equal good air entry bilaterally, no more fine basal crackles CVS: S1-S2 regular, no murmurs, no tachycardia, no gallops, no rubs Abdomen: Soft, nontender, no organomegaly, bowel sounds present, morbidly obese Neuro: No focal deficits, no facial deformity, AO x3, power 5/5 in all limbs Extremities: Bilateral lower limb edema 2+ Discharge Data Studies Completed and Pending Completed Studies During Hospitalization Category Date Time Status CTA chest [CT angio chest PE protcl [id number]] Stat Cat Scan 03/28/22 17:12 Completed XR chest 1V portable [id number] Stat Exams 03/28/22 14:40 Completed CV. echo limited [id number] Stat Ultrasound 03/28/22 18:39 Completed US echo limited with contrast [CV. echo lmt w/w contras Ultrasound 03/29/22 19:10 Completed [id number]] Routine Pending at discharge Category Date Time Status Bacterial Antigen Stat Lab 03/28/22 18:43 Received Sputum Culture and Gram Stain Stat Lab 03/29/22 03:25 Results Radiology Impressions Chest X-Ray 03/28/22 14:40 IMPRESSION: No acute chest abnormality identified. Chest CTA 03/28/22 17:12 IMPRESSION: 1. Negative for pulmonary embolus. 2. Scattered right lung tree-in-bud reticulonodular densities with similar findings in the left lower lobe may reflect an atypical mycobacterial infection. 3. Several focal nodular right-sided areas of irregular airspace opacification, measuring up to 9.6 mm in the right lower lobe, series 8, image 36 and 5.7 mm in the right middle lobe, series 8, image 34, consider short-term 1 month follow-up exam to assess for resolution and exclude an infectious process. 4. Prominent mediastinal lymph nodes measuring up to nearly 15 mm, nonspecific. 5. Coronary artery atherosclerotic calcifications. Echocardiogram CONCLUSIONS ?1.? This is a technically difficult study with off axis images.? ?2.? Normal left ventricular size and mildly decreased systolic?function. Left ventricular ejection fraction is estimated at 50-?55 %.? Although no diagnostic regional wall motion abnormality?could be identified, this possibility cannot be completely?excluded based on the study. ?2. Normal right ventricular size and systolic function. ?3. No significant valvular abnormality based on the study. ?4. No prior similar studies to compare. ?5. Repeat study with echo contrast is recommended. ?Leora Martin MD ?(Electronically Signed) ?Final Date:? ? ? 29 March 2022 ? 13:52 ?Amended: ? 29 March 2022 16:32 Laboratory Results WBC 11.8 10^3/uL (4.0-10.0) H 03/29/22 03:38 RBC 4.36 10^6/uL (4.1-5.3) 03/29/22 03:38 Hgb 14.5 g/dL (11.7-16.6) 03/29/22 03:38 Hct 44.1 % (42.0-52.0) 03/29/22 03:38 MCV 101.1 fl (80-94) H 03/29/22 03:38 MCH 33.3 pg (28.0-34.0) 03/29/22 03:38 MCHC 32.9 g/dL (30.0-36.0) 03/29/22 03:38 RDW 16.9 % (12.1-15.1) H 03/29/22 03:38 Plt Count 305 10^3/cmm (130-400) 03/29/22 03:38 MPV 10.3 fL (7.4-10.4) 03/29/22 03:38 Neut % (Auto) 94.3 % 03/29/22 03:38 Lymph % (Auto) 4.0 % 03/29/22 03:38 [place] % (Auto) 0.6 % 03/29/22 03:38 Eos % (Auto) 0.1 % 03/29/22 03:38 Baso % (Auto) 0.3 % 03/29/22 03:38 Neut # (Auto) 11.13 10^3/uL (1.8-7.7) H 03/29/22 03:38 Lymph # (Auto) 0.5 10^3/uL (0.8-4.8) L 03/29/22 03:38 [place] # (Auto) 0.1 10^3/uL (0.2-0.9) L 03/29/22 03:38 Eos # (Auto) 0.0 10^3/uL (0.0-0.8) 03/29/22 03:38 Baso # (Auto) 0.0 10^3/uL (0.0-0.1) 03/29/22 03:38 Nucleated RBC % (auto) 0 % 03/29/22 03:38 Nucleated RBCs # 0.0 /100WBC 03/29/22 03:38 D-Dimer 1.60 ug/mIFEU (0-0.59) H 03/28/22 15:10 Sodium 141 mmol/L (136-145) 03/29/22 03:38 Potassium 5.1 mmol/L (3.5-5.1) 03/29/22 03:38 Chloride 100 mmol/L (98-107) 03/29/22 03:38 Carbon Dioxide 32 mmol/L (22-29) H 03/29/22 03:38 Anion Gap 14.1 (5-19) 03/29/22 03:38 BUN 33 mg/dL (8-23) H 03/29/22 03:38 Creatinine 1.1 mg/dL (0.7-1.2) 03/29/22 03:38 GFR Calculation Not Reportable 03/29/22 03:38 Glucose 167 mg/dL (65-115) H 03/29/22 03:38 Estimat Average Glucose 68 03/29/22 03:38 Hemoglobin A1c 4.0 % (4.0-6.0) 03/29/22 03:38 Calculated Osmolality 303 mOsm/kg (285-295) H 03/29/22 03:38 Calcium 9.2 mg/dL (8.5-10.5) 03/29/22 03:38 Phosphorus 4.9 mg/dL (2.5-4.5) H 03/29/22 03:38 Magnesium 2.0 mg/dL (1.7-2.3) 03/29/22 03:38 Iron 75 ug/dL (59-158) 03/28/22 18:43 TIBC 411 mcg/dl 03/28/22 18:43 % Saturation 18.2 % (20-50) L 03/28/22 18:43 Unsat Iron Binding 336 ug/dL (112-347) 03/28/22 18:43 Total Bilirubin 1.0 mg/dL (0.15-1.2) 03/29/22 03:38 AST 14 U/L (0-40) 03/29/22 03:38 ALT 10 U/L (0-41) 03/29/22 03:38 Alkaline Phosphatase 95 U/L (40-130) 03/29/22 03:38 Troponin T Baseline 21 ng/L (0-15) H 03/28/22 15:10 Troponin T 120 Minute 18.24 ng/L (0-15) H 03/28/22 16:28 Delta Troponin T -2.76 ABS# (0-10) L 03/28/22 16:28 Troponin T Hi Sens 6Hr 22.82 ng/L (0-15) H 03/28/22 20:30 Troponin T Hi Sens 6Hr Delta 1.82 ng/L (0-12) 03/28/22 20:30 NT-Pro-B Natriuret Pep 347 pg/mL (0-450) 03/28/22 15:10 Total Protein 6.6 g/dL (6.6-8.7) 03/29/22 03:38 Albumin 4.0 g/dL (3.5-5.2) 03/29/22 03:38 Globulin 2.6 g/dL (1.3-4.6) 03/29/22 03:38 Triglycerides 70 mg/dL (0-150) 03/29/22 03:38 Cholesterol 169 mg/dL (0-200) 03/29/22 03:38 LDL Cholesterol, Calc 118 mg/dL (50-129) 03/29/22 03:38 Total VLDL Cholesterol 14 mg/dL (0-30) 03/29/22 03:38 HDL Cholesterol 37 mg/dL (60-100) L 03/29/22 03:38 Cholesterol/HDL Ratio 4.57 mg/dL (1.0-5.00) 03/29/22 03:38 Vitamin B12 637 pg/mL (232-1245) 03/28/22 18:26 Folate 15.7 ng/mL (4.5-32.2) 03/28/22 18:43 Procalcitonin 0.04 ng/mL (0-0.5) 03/28/22 18:43 TSH 0.81 uIU/mL (0.27-4.20) 03/28/22 18:26 Urine Color Yellow (Yellow) 03/28/22 18:43 Urine Appearance Clear (CLEAR) 03/28/22 18:43 Urine pH 5.5 (5-7) 03/28/22 18:43 Ur Specific [place] 1.020 (1.005-1.030) 03/28/22 18:43 Urine Protein Negative (Negative) 03/28/22 18:43 Urine Glucose (UA) Negative (Normal) 03/28/22 18:43 Urine Ketones Negative (Negative) 03/28/22 18:43 Urine Blood Negative (Negative) 03/28/22 18:43 Urine Nitrate Negative 03/28/22 18:43 Urine Bilirubin Negative (Negative) 03/28/22 18:43 Urine Urobilinogen 0.2 mg/dL (Negative) 03/28/22 18:43 Ur Leukocyte Esterase Negative (Negative) 03/28/22 18:43 Ur Random Sodium 127 mmol/L 03/28/22 18:43 Ur Random Potassium 27 mmol/L 03/28/22 18:43 Ur Random Chloride 139 mmol/L 03/28/22 18:43 Urine Creatinine 51 mg/dL (39-259) 03/28/22 18:43 Urine Opiates Screen Negative ng/mL (Negative) 03/28/22 18:43 Ur Barbiturates Screen Negative ng/mL (Negative) 03/28/22 18:43 Ur Phencyclidine Scrn Negative ng/mL (Negative) 03/28/22 18:43 Ur Amphetamines Screen Negative ng/mL (Negative) 03/28/22 18:43 U Benzodiazepines Scrn Negative ng/mL (Negative) 03/28/22 18:43 Urine Cocaine Screen Negative ng/mL (Negative) 03/28/22 18:43 U Marijuana (THC) Screen Negative ng/mL (Negative) 03/28/22 18:43 Coronavirus 229E (PCR) Not detected (NOT DETECT) 03/28/22 18:30 SARS-CoV-2 (PCR) Not detected (NOT DETECT) 03/28/22 18:30 Vitals Last Vital Signs Temp 98.0 F 03/29/22 20:00 Pulse 64 03/30/22 05:30 Resp 15 03/30/22 03:13 BP 118/79 03/30/22 03:13 Pulse Ox 87 L 03/30/22 09:22 O2 Del Method 03/30/22 08:00 O2 Flow Rate 3 03/30/22 09:22 FiO2 2 03/29/22 16:00 Discharge Plan Discharge Patient Disposition: Home Condition: Stable Prescriptions: New colchicine 0.6 mg Tablet 0.6 mg PO DAILY Qty: 30 0RF prednisone 10 mg tablets,dose pack See Rx Instructions .ROUTE .COMPLEX Qty: 21 0RF Rx Instructions: prednisone 5 mg: take 8 tablets (40 mg) on Day 1; 7 tablets (35 mg) on Day 2; then decrease by 1 tablet every day until finished ipratropium-albuterol 0.5 mg-3 mg(2.5 mg base)/3 mL solution for nebulization 3 ml inhalation Q8H Qty: 180 0RF Pulmicort 0.5 mg/2 mL suspension for nebulization 0.25 mg inhalation BID Qty: 60 0RF Augmentin 500-125 mg tablet 1 tab PO BID Qty: 14 0RF levofloxacin 500 mg tablet 500 mg PO Q24H 7 Days Qty: 7 0RF lisinopril 10 mg tablet 10 mg PO DAILY Qty: 30 0RF Continued atorvastatin 20 mg Tablet 20 mg PO QPM aspirin 81 mg Tablet,Delayed Release (Dr/Ec) 81 mg PO QPM tamsulosin 0.4 mg capsule 0.4 mg PO BID allopurinol 300 mg tablet 300 mg PO DAILY furosemide 20 mg Tablet 20 mg PO DAILY Changed carvedilol 12.5 mg tablet 12.5 mg PO BID Qty: 60 0RF Discontinued lisinopril 30 mg tablet 30 mg PO DAILY Discharge Orders: Discharge Order (Routine); Ordered 03/30/22 Ordered By: Jeremiah Morales Other Ambulatory Orders: DME: Nebulizer with Neb Kit (Order) Location: None Selected Ordered By: Jeremiah Morales DME: Oxygen (Order) Location: None Selected Ordered By: Jeremiah Morales Discharge Diet: Cardiac Discharge Activity: Resume usual activity and Increase activity as tolerated Patient Instructions: Lisinopril (By mouth) (Prinivil, Zestril), Prednisone (By mouth) (predniSONE Intensol, Prednicot, Deltasone, Aimee), Amoxicillin/Clavulanate Potassium (By mouth) (Augmentin, Augmentin..., Colchicine (By mouth) (Colcrys, Mitigare), Levofloxacin (By mouth) (Levaquin, Levaquin Leva-patrice), Budesonide (By breathing) (Flex de Pulmicort, Pulmicort Flexhaler,..., Ipratropium/Albuterol (By breathing) (Combivent, Combivent..., Opioid Safety Activity Restrictions/Additional Instructions: Dose of Coreg has been changed to 12.5 mg twice daily. Giurgius numbers have not changed to 10 mg daily. Take Lasix 20 mg daily. Colchicine has been added for gout. Patient is to take steroid taper as directed. He is to take DuoNebs 3 times a day, Pulmicort twice daily as nebulization. He is consulted today regarding continuous oxygen supplementation. He is to take Augmentin and Levaquin for next 10 days. Discharge Attestations Time Spent in Discharge Care*: greater than 30 min Specific Discharge Activities: educating patient, educating and/or supporting family/caregiver, discussing with caser up/social workers/dc planners, documenting/other paperwork and evaluating patient/reviewing data Status at Discharge: Cognitive status at discharge: mildly impaired cognition, Behavioral status at discharge: can be uncooperative and independent in ADL's, Functional status at discharge: independent ambulation, Overall status at discharge: patient is progressing back to baseline Quality Metrics Clinical Quality Measures [ No reported AMI, CVA or VTE this stay] Coding Level of Care Code Acute Chg FW DC note Diagnoses Respiratory failure with hypoxia J96.21 Chronicity: acute on chronic CHF exacerbation I50.33 Heart failure type: diastolic NIKI on CPAP G47.33; Z99.89 COPD exacerbation J44.1 Postsurgical cardiac pacemaker in situ Z95.0 Ischemic cardiomyopathy I25.5 ICD (implantable cardioverter-defibrillator) in place Z95.810
--- NOTE | 2022-03-30 10:38 | PC.CHAP ---
Pastoral Care Encounter/Spiritual Assessment Type of Contact [] Declined repairer wood furniture visit [] Patient/Family/Request visit [] Outpatient visit [] Follow-up visit [] Physician referral [] Code/Alert [x] Routine visit [] Staff referral [] Actively dying [] Patient sleeping [] Family support [] [] Out of room [] Palliative care [] [x] Receiving care in room [] Pre-surgical visit [] Trauma [] Long length of stay [x] ICU visit [] Other: Relational/Emotional Strength [] Patient feels connected with others/family/visitors/staff [] Distress [] Loneliness/isolation [] Abandonment Spirituality of Patient [] Person of Letitia [] Attends Episcopal of their Letitia [] Believes in Prayer [] Reads Bible or Yazdanism materials [] There are Spiritual issues to be addressed Meat Molder Interventions [x] Prayer [] Active listening [] Non-anxious presence [] Spiritual/emotional support [] Crisis/trauma care [] Spiritual counseling [] Bereavement support [] Provided bereavement packet [] Provided Bible/devotional materials [] Provided toy/stuffed animal, coloring book to patient or family member [] Provided Communion [] Anointing/Sharon [] Salvation [x] Completed spiritual assessment [] Other: Impact on Illness or Injury [] Angry [] Fearful [] Anxious [] Often cries [] Exhaustion [] Unable to work [] Unable to attend restoration [] Unable to walk/stand [] Unable to read [] Unable to drive [] Unable to eat/drink [] Unable to sleep [] Unable to be with family [] Patient intubated [] Other: Summary Time spent with patient
--- NOTE | 2022-03-30 13:51 | PC.NURSE ---
Pt was discharged with via wheelchair to personal vehicle. Patient was alert and oriented x4. All education given to in packet.
== END 2022-03-30 13:45 | disposition home or self-care (01) | DRG 291 ==
LOC: ER 15:09 → ICU 19:08
PROVIDERS: Admitting Provider Student in an Organized Health Care Education/Training Program; Emergency Provider Emergency Medicine; Visit Provider Student in an Organized Health Care Education/Training Program
DX: I11.0 Hypertensive heart disease with heart failure (principal); I50.33 Acute on chronic diastolic (congestive) heart failure; J96.21 Acute and chronic respiratory failure with hypoxia; J44.1 Chronic obstructive pulmonary disease with (acute) exacerbation; G47.33 Obstructive sleep apnea (adult) (pediatric); Z99.89 Dependence on other enabling machines and devices; I25.5 Ischemic cardiomyopathy; Z95.0 Presence of cardiac pacemaker; M10.9 Gout, unspecified; T50.1X6A Underdosing of loop [high-ceiling] diuretics, initial encounter; Z91.128 Patient's intentional underdosing of medication regimen for other reason; Z79.82 Long term (current) use of aspirin; R45.1 Restlessness and agitation
CPT/HCPCS: 36415; 71045; 71275; 80048; 80053; 80061; 80306; 81003; 82436; 82570; 82607; 82746; 83036; 83540; 83550; 83735; 83880; 84100; 84133; 84145; 84300; 84443; 84484; 85025; 85378; 86403; 87070; 87186; 87205; 87449; 87635; 87641; 93005; 93308; 94640; 94760; 96372; 96374; 96375; 99285; C8924; J1630; J1644; J1940; J2920; J2930; J3490; J7626; Q0144; Q9956; Q9967